=== PATIENT | male | born 1980 | race American Indian/Alaskan Native ===

== ENCOUNTER 2019-07-08 17:26 | Emergency (ER) | payer OTHER ==
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
[2019-07-08] MEDS ORDERED: FLEXERIL PO ONE (21:10)
[2019-07-08] MEDS ORDERED: TORADOL IM ONE (21:10)
[2019-07-08 23:50] VITALS: BP 121/78
== END 2019-07-08 23:23 | disposition home or self-care (01) ==
LOC: EDBD → ED 17:26
DX: S29.012A Strain of muscle and tendon of back wall of thorax, initial encounter (principal); M25.571 Pain in right ankle and joints of right foot; M25.572 Pain in left ankle and joints of left foot; R51 Headache; M79.651 Pain in right thigh; Z79.899 Other long term (current) drug therapy; V49.49XA Driver injured in collision with other motor vehicles in traffic accident, initial encounter; Y93.89 Activity, other specified; Y92.410 Unspecified street and highway as the place of occurrence of the external cause; Y99.8 Other external cause status
CPT/HCPCS: 72070; 73610; 96372; 99283; J1885